=== PATIENT | male | born 1960 | race Caucasian/White ===

== ENCOUNTER → 2017-05-13 11:27 | Outpatient (CLI) | payer MEDICAID, SELFPAY ==
[2017-05-13 13:15] LABS: Absolute Lymphocyte Count 1.71 X10^3/ul (0.83-4.51); Absolute Neutrophil Count 5.7 X10^3/uL (2.0-7.7); Basophil# 0.04 X10^3/uL; Basophil% 0.5 % (0-1); Eosinophils% 1.2 % (0-5); Hematocrit 45.6 % (40-54); Hemoglobin 14.7 g/dl (13.0-16.5); Lymphocyte # 1.71 X10^3/ul (4.0); Lymphocyte % 21.2 % (19-41); Mean Corp Hgb Conc 32.2 g/gl (32-36); Mean Corpuscular Hgb 29.3 pg (27.0-32.0); Mean Corpuscular Volume 90.8 fL (80-94); Mean Platelet Vol. 10.2 fl (6.2-12.0); Monocyte# 0.51 X10^3/uL; Monocyte% 6.3 % (0-10); Neutrophil # 5.68 X10^3/uL (2.7-7.7); Neutrophil % 70.6 % (47-70); Platelet Count 306 K/mm3 (150-450); RBC Distribution Width CV 14.2 % (11.6-14.6); RBC Distribution Width SD 46.9 fl (35.1-43.9); Red Blood Count 5.02 M/mm3 (4.6-6.2); White Blood Count 8.1 K/mm3 (4.4-11.0)
[2017-05-13 13:19] LABS: POSITIVE COUNT NO; POSITIVE DIFFERENTIAL NO; POSITIVE MORPHOLOGY NO
[2017-05-13 13:33] LABS: AST(SGOT) 23 U/L (15-37); Alanine Aminotransfer ALT/SGPT 32 U/L (16-61); Albumin, Serum 3.4 g/dL (3.2-5.0); Alkaline Phosphatase 73 U/L (45-117); Anion Gap 7 (5-15); BUN 18 mg/dL (7-18); BUN/Creat Ratio 33.5 RATIO (10-20); Calcium,Total 8.6 mg/dL (8.5-10.1); Chloride 98 mmol/L (98-107); Creatinine, Serum 0.54 mg/dL (0.70-1.30); EST Glomerular Filtration Rate 169 mL/min (>60); Est Glom Filt Rate - Afr Amer 204 mL/min (>60); Globulin 3.5 g/dL (2.2-4.2); Glucose 74 mg/dL (74-106); Potassium 4.2 mmol/L (3.5-5.1); Protein, Total 6.9 g/dL (6.4-8.2); Sodium Level 137 mmol/L (136-145); Thyroid Stim Hormone (TSH) 1.72 uIU/mL (0.358-3.74)
[2017-05-13 13:34] LABS: Vitamin D,25 Hydroxy 18.6 ng/mL (29.95-100.01)
== END ==
PROVIDERS: Family Provider Family Medicine Geriatric Medicine; PCP Family Medicine Geriatric Medicine; Visit Provider Family Medicine Geriatric Medicine
DX: I10 Essential (primary) hypertension (principal); E11.9 Type 2 diabetes mellitus without complications; E55.9 Vitamin D deficiency, unspecified
CPT/HCPCS: 36415; 80053; 82306; 84443; 85025

== ENCOUNTER → 2017-10-29 10:20 | Outpatient (CLI) | payer MEDICAID, SELFPAY ==
[2017-10-29 13:06] LABS: ALB/GLOB Ratio 0.9 RATIO (0.9-2.4); AST(SGOT) 23 U/L (15-37); Alanine Aminotransfer ALT/SGPT 29 U/L (16-61); Albumin, Serum 3.5 g/dL (3.2-5.0); Alkaline Phosphatase 80 U/L (45-117); Anion Gap 4 (5-15); BUN 15 mg/dL (7-18); BUN/Creat Ratio 21.2 RATIO (10-20); Chloride 97 mmol/L (98-107); Creatinine, Serum 0.71 mg/dL (0.70-1.30); EST Glomerular Filtration Rate 123 mL/min (>60); Est Glom Filt Rate - Afr Amer 148 mL/min (>60); Globulin 3.9 g/dL (2.2-4.2); Glucose 91 mg/dL (74-106); PSA,Total - Annual Screen 0.54 ng/mL (0.00-4.00); Potassium 4.4 mmol/L (3.5-5.1); Protein, Total 7.4 g/dL (6.4-8.2); Sodium Level 136 mmol/L (136-145); Thyroid Stim Hormone (TSH) 1.06 uIU/mL (0.358-3.74)
[2017-10-29 14:08] LABS: Absolute Lymphocyte Count 1.95 X10^3/ul (0.83-4.51); Absolute Neutrophil Count 14.7 X10^3/uL (2.0-7.7); Basophil# 0.03 X10^3/uL; Basophil% 0.2 % (0-1); Eosinophil# 0.12 X10^3/uL; Eosinophils% 0.7 % (0-5); Hematocrit 52.1 % (40-54); Hemoglobin 16.2 g/dl (13.0-16.5); Lymphocyte # 1.95 X10^3/ul (4.0); Lymphocyte % 10.9 % (19-41); Mean Corp Hgb Conc 31.1 g/gl (32-36); Mean Corpuscular Hgb 29.3 pg (27.0-32.0); Mean Corpuscular Volume 94.4 fL (80-94); Mean Platelet Vol. 10.6 fl (6.2-12.0); Monocyte# 1.07 X10^3/uL; Neutrophil # 14.72 X10^3/uL (2.7-7.7); Neutrophil % 81.9 % (47-70); Platelet Count 313 K/mm3 (150-450); RBC Distribution Width CV 13.5 % (11.6-14.6); RBC Distribution Width SD 46.3 fl (35.1-43.9); Red Blood Count 5.52 M/mm3 (4.6-6.2); White Blood Count 17.9 K/mm3 (4.4-11.0)
[2017-10-29 14:09] LABS: POSITIVE COUNT NO; POSITIVE DIFFERENTIAL NO; POSITIVE MORPHOLOGY NO
[2017-10-30 08:33] LABS: Vitamin D,25 Hydroxy 128.6 ng/mL (29.95-100.01)
[2017-10-30 11:19] LABS: Hep C Antibodies 0.1 s/co ratio (0.0-0.9)
== END ==
PROVIDERS: Family Provider Family Medicine Geriatric Medicine; PCP Family Medicine Geriatric Medicine; Visit Provider Family Medicine Geriatric Medicine
DX: I10 Essential (primary) hypertension (principal); E11.9 Type 2 diabetes mellitus without complications; E55.9 Vitamin D deficiency, unspecified; Z12.5 Encounter for screening for malignant neoplasm of prostate; Z13.89 Encounter for screening for other disorder
CPT/HCPCS: 36415; 80053; 82306; 84153; 84443; 85025; 86803; G0103

== ENCOUNTER → 2017-11-26 10:58 | Outpatient (CLI) | payer MEDICAID, SELFPAY ==
[2017-11-26 12:46] LABS: Absolute Lymphocyte Count 1.14 X10^3/ul (0.83-4.51); Absolute Neutrophil Count 5.8 X10^3/uL (2.0-7.7); Basophil# 0.04 X10^3/uL; Basophil% 0.5 % (0-1); Eosinophil# 0.09 X10^3/uL; Eosinophils% 1.1 % (0-5); Hematocrit 47.2 % (40-54); Hemoglobin 14.9 g/dl (13.0-16.5); Lymphocyte # 1.14 X10^3/ul (4.0); Lymphocyte % 14.4 % (19-41); Mean Corp Hgb Conc 31.6 g/gl (32-36); Mean Corpuscular Hgb 29.4 pg (27.0-32.0); Mean Corpuscular Volume 93.3 fL (80-94); Mean Platelet Vol. 9.9 fl (6.2-12.0); Monocyte# 0.89 X10^3/uL; Monocyte% 11.2 % (0-10); Neutrophil # 5.76 X10^3/uL (2.7-7.7); Neutrophil % 72.5 % (47-70); Platelet Count 271 K/mm3 (150-450); RBC Distribution Width CV 13.8 % (11.6-14.6); RBC Distribution Width SD 45.4 fl (35.1-43.9); Red Blood Count 5.06 M/mm3 (4.6-6.2); White Blood Count 7.9 K/mm3 (4.4-11.0)
[2017-11-26 12:48] LABS: POSITIVE COUNT NO; POSITIVE DIFFERENTIAL NO; POSITIVE MORPHOLOGY NO
== END ==
PROVIDERS: Family Provider Family Medicine Geriatric Medicine; PCP Family Medicine Geriatric Medicine; Visit Provider Family Medicine Geriatric Medicine
DX: D72.828 Other elevated white blood cell count (principal)
CPT/HCPCS: 36415; 85025

== ENCOUNTER 2018-05-22 19:28 | Emergency (ER) | payer MEDICAID, SELFPAY ==
[2018-05-22 19:29] VITALS: BP 150/74; PULSE 94; RESP 18; TEMP 37.4; O2SAT 88; BMI 19.8
--- NOTE | 2018-05-22 19:55 | ED.VISSUMM ---
- ER Visit Summary Date of Service: 05/22/18 Chief Complaint: Hearing voices History of Present Illness: The patient is a 58 M presenting hearing voices. Patient states that he has been hearing voices which started today. He states the voices are making him confused. He denies suicidal or homicidal ideation. He has heard voices in the past but not recently. He denies alcohol or drug use. Denies other complaints. Physical Examination: Vitals are stable. Patient is afebrile. Alert no acute distress. HEENT exam is unremarkable. Neck is supple. Lungs are wheezing bilaterally. Heart is regular rate and rhythm. Abdomen is soft nontender nondistended. Extremities are unremarkable. Skin is warm and dry. No focal neurologic deficit. Remainder of exam is unremarkable. Emergency Department Course and Treatment: CBC, chemistries are unremarkable other than BUN 22. Tox and alcohol are negative. Depakote level 5. Patient was given a DuoNeb aerosol with improvement of his lung sounds. Discussed with the counseling center for evaluation. Disposition: Per counseling center Impression: Schizophrenia, auditory hallucinations This note was generated with [employer] dictation software. It may contain incorrect words, spelling, and punctuation that were not noted in review of the chart prior to signing ED Disposition - Plan for ED Patient: Referrals: Johan Banks Chi, MD [Primary Care Provider] -
[2018-05-22 20:06] LABS: Absolute Lymphocyte Count 1.49 X10^3/ul (0.83-4.51); Absolute Neutrophil Count 6.2 X10^3/uL (2.0-7.7); Basophil# 0.02 X10^3/uL; Basophil% 0.2 % (0-1); Eosinophil# 0.12 X10^3/uL; Eosinophils% 1.4 % (0-5); Hematocrit 48.8 % (40-54); Hemoglobin 15.2 g/dl (13.0-16.5); Lymphocyte # 1.49 X10^3/ul (4.0); Lymphocyte % 17.9 % (19-41); Mean Corp Hgb Conc 31.1 g/gl (32-36); Mean Corpuscular Hgb 29.1 pg (27.0-32.0); Mean Corpuscular Volume 93.5 fL (80-94); Mean Platelet Vol. 9.5 fl (6.2-12.0); Monocyte# 0.52 X10^3/uL; Monocyte% 6.3 % (0-10); Neutrophil # 6.16 X10^3/uL (2.7-7.7); Neutrophil % 74.1 % (47-70); POSITIVE COUNT NO; POSITIVE DIFFERENTIAL NO; POSITIVE MORPHOLOGY NO; Platelet Count 241 K/mm3 (150-450); RBC Distribution Width CV 13.7 % (11.6-14.6); RBC Distribution Width SD 46.8 fl (35.1-43.9); Red Blood Count 5.22 M/mm3 (4.6-6.2); White Blood Count 8.3 K/mm3 (4.4-11.0)
[2018-05-22 20:15] VITALS: PULSE 81; RESP 18
[2018-05-22] MEDS: Ipratropium/Albuterol Sulfate 3 ML AMPUL.NEB INHALATION (20:15)
[2018-05-22 20:19] LABS: Anion Gap 5 (5-15); BUN 22 mg/dL (7-18); BUN/Creat Ratio 41.4 RATIO (10-20); Calcium,Total 8.3 mg/dL (8.5-10.1); Chloride 99 mmol/L (98-107); Creatinine, Serum 0.53 mg/dL (0.70-1.30); EST Glomerular Filtration Rate 170 mL/min (>60); Est Glom Filt Rate - Afr Amer 206 mL/min (>60); Estimated Creatinine Clearance 119.09 ml/min; Glucose 98 mg/dL (74-106); Potassium 4.1 mmol/L (3.5-5.1); Sodium Level 137 mmol/L (136-145)
[2018-05-22 20:24] LABS: Alcohol, Blood (Medical)-Serum < 3.0 mg/dL
[2018-05-22 20:59] LABS: Valproic Acid (Depakene) Level 5 ug/mL (50-100)
[2018-05-22 21:24] LABS: Amphetamine Urine VISTA NEGATIVE (<1000 ng/mL); Barbiturate Urine VISTA NEGATIVE (< 200 ng/mL); Benzodiazepine Urine VISTA NEGATIVE (< 200 ng/mL); Cocaine Urine VISTA NEGATIVE (< 300 ng/mL); Ecstacy Urine VISTA NEGATIVE (< 500 ng/mL); Methadone Urine VISTA NEGATIVE (< 300 ng/mL); PCP Urine VISTA NEGATIVE (< 25 ng/mL); THC Urine VISTA NEGATIVE (< 50 ng/mL); Vista UDS pH Range 6
--- NOTE | 2018-05-22 21:28 | ED.RN ---
CALLED [facility] TO SEE THIS PT.
[2018-05-22 21:29] VITALS: RESP 16
--- NOTE | 2018-05-22 22:38 | ED.RN ---
SOTO CALLED BACK, ERNESTINA WILL BE IN SOON.
[2018-05-23 00:07] VITALS: O2SAT 92
--- NOTE | 2018-05-23 00:17 | ED.DEP ---
ED Disposition - Plan for ED Patient: Instructions: ED Schizophrenia General Referrals: Johan Banks Chi, MD [Primary Care Provider] - Counseling,Center [GROUP OF PHYSICIANS] -
[2018-05-23] MEDS: hydrOXYzine PAM 25 MG Capsule PO (00:21)
[2018-05-23 00:25] VITALS: BP 120/81; PULSE 82; RESP 18; O2SAT 92
== END 2018-05-23 00:30 | disposition home or self-care (01) ==
PROVIDERS: Emergency Provider Emergency Medicine; Family Provider Family Medicine Geriatric Medicine; PCP Family Medicine Geriatric Medicine
DX: F20.9 Schizophrenia, unspecified (principal); R44.0 Auditory hallucinations; Z72.0 Tobacco use
CPT/HCPCS: 80048; 80164; 80307; 80320; 85025; 94640; 99285; G0480

== ENCOUNTER 2018-06-28 14:56 | Emergency (ER) | payer MEDICAID, SELFPAY ==
[2018-06-28] VITALS (14 sets, daily range): BP systolic 103–142; BP diastolic 58–86; PULSE 83–108; RESP 16–24; TEMP 36.4–36.5; O2SAT 87–97; BMI 19.3
--- NOTE | 2018-06-28 15:19 | RAD_ITS ---
STUDY: X-RAY CHEST REASON FOR EXAM: Male, 58 years old. Cough. TECHNIQUE: Single AP portable view of the chest. COMPARISON: Comparison is made with prior chest radiograph dated January 24, 2016. FINDINGS: Hyperinflation. Decreased bilateral bronchovascular markings suggestive of emphysematous changes. There is no demonstrated pleural abnormality. Normal size heart. Normal mediastinum and edi. Normal visualized pulmonary arteries. Normal visualized aortic arch and descending thoracic aorta. There are diffuse degenerative changes of the visualized thoracic spine. Normal visualized ribs, clavicles, and shoulders. There is no demonstrated abnormality of the visualized soft tissue structures of the upper abdomen. RAD/Chest 1 View (Portable) IMPRESSION: Hyperinflation. The lungs are clear. Electronically Signed: Ephraim Lynne, at 15:49 EDT , Service support ,
--- NOTE | 2018-06-28 15:20 | EKG12_ITS ---
Test Reason : Blood Pressure : / mmHG Vent. Rate : 101 BPM Atrial Rate : 101 BPM P-R Int : 130 ms QRS Dur : 136 ms QT Int : 376 ms P-R-T Axes : 081 261 060 degrees QTc Int : 487 ms Sinus tachycardia Right bundle branch block Abnormal ECG Confirmed by FARIHA PRINCE, RODRIGO ([id number]), film editor supervisor SHAQUILLE BROWNE ([id number]) on 06/30/2018 9:39:21 AM Referred By: RAMIREZ Confirmed By:RODRIGO FRIED MD
--- NOTE | 2018-06-28 15:23 | ED.DCSUM_ITS ---
- ER Visit Summary Date of Service: 06/28/18 Chief Complaint: Shortness of breath History of Present Illness: The patient is a 58 M presenting with shortness of breath. Patient was brought in by his retail marketing manager from the counseling center. He is supposed to wear oxygen all the time. He did not have his oxygen with him at the counseling center. He has been coughing and has been short of breath. He states he does have his oxygen available to him at home. He smokes frequently and is unable to wear his oxygen when he smokes. He has been hearing voices and received Invega today. He is at his baseline mental status per his retail marketing manager. His retail marketing manager is concerned about his ability to care for himself. She feels he needs mental health placement today. Physical Examination: Vitals are stable. Patient is afebrile. Alert no acute distress. 87% on room air. 94% on 2L HEENT exam is unremarkable. Neck is supple. Lungs are wheezing bilaterally. Heart is regular rate and rhythm. Abdomen is soft nontender nondistended. Extremities are unremarkable. Skin is warm and dry. No focal neurologic deficit. Alert and oriented x2 Remainder of exam is unremarkable. Emergency Department Course and Treatment: Patient was given albuterol, Atrovent aerosols. Chest x-ray shows hyperinflation. CBC, chemistries unremarkable other than glucose 178. Troponin negative. D-dimer negative. Alcohol 9.0. Tox is negative. Discussed with the [facility] for evaluation. Disposition: Per [facility] Impression: COPD, history of schizophrenia This note was generated with [employer] dictation software. It may contain incorrect words, spelling, and punctuation that were not noted in review of the chart prior to signing ED Disposition - Plan for ED Patient: Referrals: Johan Banks Chi, MD [Primary Care Provider] -
[2018-06-28 15:38] LABS: Absolute Neutrophil Count 6.6 X10^3/uL (2.0-7.7); Basophil# 0.03 X10^3/uL; Basophil% 0.4 % (0-1); Eosinophil# 0.08 X10^3/uL; Eosinophils% 0.9 % (0-5); Hematocrit 49.7 % (40-54); Hemoglobin 15.7 g/dl (13.0-16.5); Lymphocyte % 16.4 % (19-41); Mean Corp Hgb Conc 31.6 g/gl (32-36); Mean Corpuscular Hgb 29.7 pg (27.0-32.0); Mean Platelet Vol. 9.5 fl (6.2-12.0); Monocyte% 4.7 % (0-10); Neutrophil # 6.61 X10^3/uL (2.7-7.7); Neutrophil % 77.4 % (47-70); Platelet Count 252 K/mm3 (150-450); RBC Distribution Width CV 13.5 % (11.6-14.6); RBC Distribution Width SD 46.5 fl (35.1-43.9); Red Blood Count 5.29 M/mm3 (4.6-6.2); White Blood Count 8.5 K/mm3 (4.4-11.0)
[2018-06-28 15:43] LABS: POSITIVE COUNT NO; POSITIVE DIFFERENTIAL NO; POSITIVE MORPHOLOGY NO
[2018-06-28] MEDS: Albuterol 2.5 MG/3 ML VIAL.NEB. INHALATION ×3 (15:45)
[2018-06-28] MEDS: Ipratropium/Albuterol Sulfate 3 ML AMPUL.NEB INHALATION (15:45)
[2018-06-28 16:02] LABS: Anion Gap 2 (5-15); BUN 18 mg/dL (7-18); BUN/Creat Ratio 22.4 RATIO (10-20); Calcium,Total 8.3 mg/dL (8.5-10.1); Chloride 99 mmol/L (98-107); D-Dimer Quantitative (DVT/PE) 0.28 FEU/ug/m (0.27-0.49); EST Glomerular Filtration Rate 106 mL/min (>60); Est Glom Filt Rate - Afr Amer 128 mL/min (>60); Glucose 178 mg/dL (74-106); Potassium 3.8 mmol/L (3.5-5.1); Sodium Level 138 mmol/L (136-145)
--- NOTE | 2018-06-28 16:40 | ED.RN ---
CRISIS I WILL CONTACT MALINA Perkins
--- NOTE | 2018-06-28 17:13 | ED.RN ---
PT CLOTHES AND SHOES STAINED, CRUSTY AND COVERED IN DIRT. PT WIPED WITH BATH WIPES AND PLACED IN GOWN. PT GIVEN BED BATH WITH WARM WIPES. WATER GIVEN PER PT REQUEST. PT WITH SWOLLEN RED AREA ON LEFT ELBOW. DR. RAMIREZ CHO.
[2018-06-28 17:24] LABS: Amphetamine Urine VISTA NEGATIVE (<1000 ng/mL); Barbiturate Urine VISTA NEGATIVE (< 200 ng/mL); Benzodiazepine Urine VISTA NEGATIVE (< 200 ng/mL); Cocaine Urine VISTA NEGATIVE (< 300 ng/mL); Ecstacy Urine VISTA NEGATIVE (< 500 ng/mL); Methadone Urine VISTA NEGATIVE (< 300 ng/mL); PCP Urine VISTA NEGATIVE (< 25 ng/mL); THC Urine VISTA NEGATIVE (< 50 ng/mL); Vista UDS pH Range 7
--- NOTE | 2018-06-28 18:14 | ED.RN ---
[facility]ISIS IS AT ANOTHER FACILITY BUT IS TO COME SEE PATIENT WHEN AVAILABLE.
--- NOTE | 2018-06-28 18:27 | ED.RN ---
NUCLEAR FUELS RESEARCH ENGINEER AT BEDSIDE WITH PT REPORTS CONCERNS ABOUT PT LIVING SITUATION. REPORTS THAT PT HOUSE WAS VERY DIRTY AND IN DISARRAY. REPORTS THAT PT HAS BEEN HEARING VOICES AT HOME. PT IS SCHIZOPHRENIC. PT IS SUPPOSED TO WEAR 2L NC AT HOME AND ARRIVED TO ED WITHOUT ANY O2. NUCLEAR FUELS RESEARCH ENGINEER REPORTS THAT PT ADMITS TO SMOKING WHEN WEARING HIS HOME 02. PER NUCLEAR FUELS RESEARCH ENGINEER PT BROTHER IN LAW AND NEPHEW ARE SUPPOSED TO LOOK AFTER PT. REPORTS PT DECLINE SINCE SHE SAW HIM LAST MONTH FOR HIS APPT.
--- NOTE | 2018-06-28 19:21 | ED.RN ---
[facility]ISIS ON SITE TO SEE THIS PT
[2018-06-28] MEDS: Atorvastatin Calcium 40 MG Tablet PO (22:17)
[2018-06-28] MEDS: RisperiDONE 0.5 MG Tablet 2 MG PO (22:17)
[2018-06-29] VITALS (9 sets, daily range): BP systolic 115–138; BP diastolic 69–82; PULSE 77–94; RESP 13–21; O2SAT 91–98
[2018-06-29 01:26] LABS: Color, Urine Yellow (Yellow); Glucose, Dipstick Normal (Normal); Ketone-Dipstick Negative (Negative); Leukocyte Esterase-Dipstick 100 /ul (Negative); Nitrite-Dipstick Negative (Negative); Occult Blood-Urine 250 /ul (Negative); Protein-Dipstick 30 mg/dl (Negative); Urine Bilirubin Dipstick Negative (Negative); Urine Clarity Clear (Clear); Urine Urobilinogen 4 mg/dl (Normal); Urine pH 6.5 (5.0 - 8.0)
--- NOTE | 2018-06-29 02:01 | ED.RN ---
NERY MARIA REQUESTED A UA, MEDICAL CLEARANCE DOCUMENTATION, AND MEDICATION LIST, ALL WERE FAXED AND RECEIVED BY THAT FACILITY.
[2018-06-29 02:45] LABS: Mucous, Urine 0 SEEN /hpf (<or=2+); Red Blood Cells-Urine 5-10 SEEN /hpf (0-5)
[2018-06-29 02:46] LABS: Bacteria RARE /hpf (None Seen); Squamous Epithelial Cells - UA 0-5 SEEN /hpf (0-5); White Blood Cells 0-5 SEEN /hpf (0-5)
--- NOTE | 2018-06-29 03:31 | ED.RN ---
CALLED [facility], [facility], [facility], [facility] AND [facility] TO TRANSPORT THIS PT TO [facility], [facility]ST AVAILABLE TRANSPORT WAS [facility] AT 0800. THEY WILL TRANSPORT AT THAT TIME.
== END 2018-06-29 07:53 ==
PROVIDERS: Emergency Provider Emergency Medicine; Family Provider Family Medicine Geriatric Medicine; PCP Family Medicine Geriatric Medicine
DX: J44.9 Chronic obstructive pulmonary disease, unspecified (principal); E11.9 Type 2 diabetes mellitus without complications; I10 Essential (primary) hypertension; E78.00 Pure hypercholesterolemia, unspecified; Z72.0 Tobacco use; F20.9 Schizophrenia, unspecified
CPT/HCPCS: 71045; 80048; 80307; 80320; 81001; 84484; 85025; 85379; 93005; 94640; 99285; A4216; G0480